=== PATIENT | male | born 1980 | race Two or more races ===

== ENCOUNTER → 2023-07-19 | Emergency (ER) | payer OTHER ==
[~2023-07-19] VITALS: Ht 180.3 cm; Wt 117.9 kg
[~2023-07-19] MED LIST: DUI500 PO; MUPIROCIN15 GM TOP
== END | disposition home or self-care (01) ==
LOC: ER 11:06
DX: S61.012A Laceration without foreign body of left thumb without damage to nail, initial encounter (principal); W26.0XXA Contact with knife, initial encounter; Y93.89 Activity, other specified; Y92.89 Other specified places as the place of occurrence of the external cause; Y99.9 Unspecified external cause status